=== PATIENT | female | born 1960 | race Hispanic/Latino ===

== ENCOUNTER 2019-04-10 17:50 | Emergency (ER) | payer OTHER ==
[~2019-04-10] VITALS: Ht 152.4 cm; Wt 170.1 kg
[2019-04-10] MEDS ORDERED: KETOROLAC TROMETHAMINE 30 MG/ML VIAL IV STA (18:10)
--- NOTE | 2019-04-10 18:46 | NUR ---
CALLED [employer] FOR LACTIC, BC AND URINE CX
--- NOTE | 2019-04-10 19:18 | Diagnostic Imaging Report ---
EXAM: CT Abdomen and Pelvis WITHOUT contrast INDICATION: ^[id number] ^[id number] COMPARISON: None. TECHNIQUE: Abdomen and pelvis were scanned utilizing a multidetector helical scanner from the lung base to the pubic symphysis without administration of IV contrast. Absence of intravenous contrast decreases sensitivity for detection of focal lesions and vascular pathology. Coronal and sagittal reformations were obtained. Routine protocol was performed. IV CONTRAST: None ORAL CONTRAST: Water COMPLICATIONS: None RADIATION DOSE: Total DLP: 756.61 mGy*cm Estimated effective dose: (DLP x 0.015 x size factor) mSv CTDIvol has been reviewed. It is below the limits set by the Radiation Protocol Committee (RPC). FINDINGS: LINES and TUBES: None. LOWER THORAX: 3 mm left lower lobe lung nodule. Otherwise, unremarkable. HEPATOBILIARY: Unenhanced liver is unremarkable. No biliary ductal dilation. GALLBLADDER: Surgically absent. SPLEEN: No splenomegaly. PANCREAS: No focal masses or ductal dilatation. ADRENALS: No adrenal nodules KIDNEYS/URETERS: No hydronephrosis. No cystic or solid mass lesions. 8 mm left lower pole calculus. GI TRACT: No abnormal distention, wall thickening, or evidence of bowel obstruction. There are diverticula within the colon without evidence of diverticulitis. Appendix is not visualized. PELVIC ORGANS/BLADDER: Unremarkable. LYMPH NODES: No lymphadenopathy. VESSELS: Unremarkable. PERITONEUM / RETROPERITONEUM: No free air or fluid. BONES: Multilevel advanced degenerative changes of lumbar spine. SOFT TISSUES: Fat-containing umbilical hernia. IMPRESSION: 1. 8 mm left lower pole nonobstructive renal calculus. No evidence of obstructive urolithiasis. 2. Colonic diverticulosis without evidence of diverticulitis. 3. 3 mm left lower lobe lung nodule. Without risk factors, no follow-up is necessary. With risk factors, follow-up with low-dose chest CT in one year is optional. Signed by: Dr. Luis Sim MD on 04/10/2019 7:14 PM
--- NOTE | 2019-04-10 19:20 | Diagnostic Imaging Report ---
EXAMINATION: CXR 2 VIEW - HOPD INDICATION: ^[id number] ^[id number] COMPARISON: None FINDINGS: PA and lateral views TUBES and LINES: None. LUNGS: Lungs are well inflated. There is no evidence of pneumonia or pulmonary edema. PLEURA: No pleural effusion or pneumothorax. HEART AND MEDIASTINUM: The cardiomediastinal silhouette is borderline in size. BONES AND SOFT TISSUES: No acute osseous lesion. Soft tissues are unremarkable. UPPER ABDOMEN: No free air under the diaphragm. IMPRESSION: No acute thoracic abnormality. Signed by: Dr. Luis Sim MD on 04/10/2019 7:17 PM
== END 2019-04-10 20:03 | disposition home or self-care (01) ==
LOC: FSED 17:50
DX: N20.0 Calculus of kidney (principal); E87.6 Hypokalemia; I10 Essential (primary) hypertension
CPT/HCPCS: 71046; 74176; 80048; 80076; 81003; 82553; 83605; 84484; 85025; 87040; 99284; J1885